=== PATIENT | female | born 1975 | race Two or more races ===

== ENCOUNTER 2020-12-10 11:04 | Outpatient (REF) | payer OTHER, SELFPAY ==
--- NOTE | ~2020-12-10 | XR_ITS ---
EXAMINATION: XR CHEST CLINICAL INFORMATION: Exposure to Covid 19. COMPARISON: None TECHNIQUE: 2 views of the chest were obtained. FINDINGS: The lungs are clear. The cardiomediastinal silhouette is normal in size. There is no pleural effusion or pneumothorax. No acute osseous abnormality. XR/XR chest 2V IMPRESSION: No acute cardiopulmonary findings.
[2020-12-10 13:56] LABS: MANUAL DIFF FLAG NO
[2020-12-10 14:04] LABS: Basophils Percent Auto 0.2 % (0-2); Eosinophils Absolute Auto 0.1 X10*3/uL (0.0-0.4); Eosinophils Percent Auto 1.5 % (0-4); Hematocrit 40.9 % (37-47); Hemoglobin 14.1 g/dl (12.0-16.0); Imm Gran Abs Auto 0.02 X10*3/uL (0.00-0.03); Imm Gran Pct Auto 0.3 % (0.0-0.4); Lymphocytes Absolute Auto 1.3 X10*3/uL (1.2-4.9); Lymphocytes Percent Auto 21.7 % (20-40); Mean Corpuscular HGB Conc 34.5 g/dl (31.0-35.0); Mean Corpuscular Hemoglobin 29.7 pg (27.0-33.0); Mean Corpuscular Volume 86.3 fL (80-98); Mean Platelet Volume 10.3 fL (9.4-12.3); Monocytes Absolute Auto 0.5 X10*3/uL (0.1-1.2); Neutrophils Percent Auto 68.3 % (45-73); Platelet Count 224 X10*3/uL (160-400); Red Blood Count 4.74 X10*6/uL (4.20-5.50); Red Cell Distribution Width 13.2 % (11.0-16.0); White Blood Count 5.9 X10*3/uL (4.8-10.8)
[2020-12-10 14:16] LABS: Glucose Urine UA NEG (NEG); Leukocyte Esterase Urine NEG (NEG); Nitrite Urine NEG (NEG); Prothrombin Time 10.9 SEC (9.9-13.0); Specific Gravity - Urine 1.025 (1.005-1.025); Urine Blood NEG (NEG); Urine Ketones NEG (NEG); Urine Protein NEG (NEG-TRACE)
[2020-12-10 14:19] LABS: Appearance Urine CLEAR; Color Urine YELLOW; Partial Thromboplastin Time 35.4 SEC (24.1-38.0)
[2020-12-10 14:34] LABS: Alanine Aminotransferase 26 U/L (0-31); Albumin Level 4.4 g/dL (3.5-5.0); Alkaline Phosphatase 78 U/L (39-117); Anion Gap 13 (12-20); Aspartate Amino Transferase 19 U/L (5-31); Bilirubin Total 0.6 mg/dL (0.0-1.0); Blood Urea Nitrogen 10 mg/dL (9-16); Calcium 9.2 mg/dL (8.4-10.2); Carbon Dioxide 24 mmol/L (22-29); Chloride 106 mmol/L (96-108); Cholesterol 178 mg/dL; Estimated Glomerular Filt Rate > 60; Glucose Fasting 90 mg/dL (60-99); HDL Cholesterol 44 mg/dL; LDL Cholesterol Calculated 108 mg/dl; Potassium 4.4 mmol/L (3.3-5.1); Sodium 139 mmol/L (135-145); Total Protein 6.7 g/dL (6.5-8.0); Triglycerides 132 mg/dL
[2020-12-10 14:54] LABS: HCG Quantitative < 2 mIU/mL; TSH reflex Free T4 0.65 uIU/mL (0.32-4.0)
[2020-12-12 08:02] LABS: HIV AB/AG Nonreactive (Nonreactive); HIV Num 1 0.07 S/CO (0.00-0.99)
== END 2020-12-10 11:05 | disposition home or self-care (01) ==
LOC: HO.HMGCX 11:04
PROVIDERS: PCP Nurse Practitioner Family; Visit Provider Nurse Practitioner Family
DX: Z01.818 Encounter for other preprocedural examination (principal); Z11.4 Encounter for screening for human immunodeficiency virus [HIV]; N92.6 Irregular menstruation, unspecified; Z20.822 Contact with and (suspected) exposure to COVID-19
CPT/HCPCS: 71046; 80053; 80061; 81003; 84443; 84702; 85025; 85610; 85730; 87389; U0003; U0005

== ENCOUNTER 2021-01-17 10:12 | Outpatient (REF) | payer OTHER, SELFPAY ==
--- NOTE | ~2021-01-17 | MM_ITS ---
EXAMINATION: MM SCREENING DIGITAL BREAST TOMOSYNTHESIS, BILATERAL CLINICAL INFORMATION: Screening. Asymptomatic. Family history breast cancer, paternal aunt. The lifetime risk of breast cancer based on the Tyrer-Cuzick Model is 14%. Personal history recent bilateral axillary liposuction procedures approximately one month ago. COMPARISON: Outside bilateral mammography and bilateral breast ultrasound 06/04/2010 ([facility] [place], [place], [place]). TECHNIQUE: Digital breast tomosynthesis is performed in both the craniocaudal and mediolateral oblique views along with computer-aided detection (CAD). Synthesized 2D images are generated from the tomosynthesis. FINDINGS: The breasts are heterogeneously dense, which may obscure small masses (ACR BI-RADS breast composition Category c). The breast parenchymal pattern is similar to prior outside exam. There is no significant mass or architectural abnormality. There are no abnormal calcifications. The skin contours are smooth. The MLO view show some increased attenuation overlying both upper axillary regions consistent with the clinical history recent bilateral axillary liposuction. No skin thickening. MM/MM tomosynthesis screening BI IMPRESSION: 1. No mammographic evidence of malignancy. 2. Mild bilateral upper axillary post operative changes. ASSESSMENT: BI-RADS 2: Benign RECOMMENDATION: Routine annual mammography screening. This patient's information was entered into a reminder system with a target due date for their next mammogram.
[2021-01-17 12:53] LABS: Influenza A PCR NEGATIVE (Negative); Influenza B PCR NEGATIVE (Negative); Resp Syncy Virus RNA Qual PCR POSITIVE (Negative); SARS COV2 PCR INHOUSE NEGATIVE (Negative)
== END 2021-01-17 10:13 | disposition home or self-care (01) ==
LOC: HO.MAMMO 10:12
PROVIDERS: Physician Assistant Medical; Visit Provider Nurse Practitioner Family
DX: Z12.31 Encounter for screening mammogram for malignant neoplasm of breast (principal); Z20.822 Contact with and (suspected) exposure to COVID-19; J02.9 Acute pharyngitis, unspecified
CPT/HCPCS: 0241U; 36415; 77063; 77067; 87071

== ENCOUNTER 2021-10-24 09:35 | Outpatient (REF) | payer OTHER, SELFPAY ==
[2021-10-24 15:06] LABS: CT PCR NOT DETECTED (Not Detect.); NG PCR NOT DETECTED (Not Detect.)
[2021-10-25 13:36] LABS: BV Int Neg Control Negative (Negative); BV Int Pos Control Positive (Positive)
[2021-10-30 19:06] LABS: HPV mRNA E6/E7 rflx Not Detected (Not Detected)
== END 2021-10-24 09:36 | disposition home or self-care (01) ==
LOC: HO.LAB 09:35
PROVIDERS: Visit Provider Advanced Practice Midwife
DX: Z01.419 Encounter for gynecological examination (general) (routine) without abnormal findings (principal); Z11.51 Encounter for screening for human papillomavirus (HPV); Z20.2 Contact with and (suspected) exposure to infections with a predominantly sexual mode of transmission; R10.2 Pelvic and perineal pain
CPT/HCPCS: 87480; 87491; 87510; 87591; 87624; 87660; 88142

== ENCOUNTER 2021-12-04 09:47 | Outpatient (REF) | payer OTHER, SELFPAY ==
--- NOTE | ~2021-12-04 | US_ITS ---
EXAMINATION: US PELVIS CLINICAL INFORMATION: Pelvic pain COMPARISON: None TECHNIQUE: Ultrasound of the pelvis is performed using both transabdominal and transvaginal transducers along Doppler. Transvaginal imaging is performed due to inadequate visualization transabdominally. FINDINGS: Uterus: The uterus is anteverted and measures 10.2 x 5.2 x 6.2 cm. Nabothian cysts in the cervix. The endometrium was obscured by myomas. Multiple uterine myomas are seen: * A 1.6 x 1.3 x 1.3 cm left intramural myoma. * A 2.0 x 1.4 x 1.8 cm left submucosal myoma with a 50% submucosal component. * A 2.4 x 1.9 x 2.7 cm subserosal myoma in the right body. * A 1.6 x 1.3 x 1.5 cm subserosal myoma in the fundus. Adnexa: Both ovaries are visualized. There is normal color flow to the adnexa. There is no ovarian torsion. There is no pelvic ascites or fluid collection. Right ovary measures 3.8 x 1.6 x 2.0 cm. Unremarkable appearance of the right ovary. Left ovary measures 2.7 x 1.8 x 1.7 cm. Unremarkable appearance of the left ovary. US/US pelvic and transvaginal IMPRESSION: Multiple uterine myomas, the largest is a a 2.7 cm subserosal myoma in the right body of the uterus. One myoma is submucosal measuring 2.0 cm with a 50% submucosal component. Unremarkable sonographic appearance of the ovaries.
== END 2021-12-04 09:48 | disposition home or self-care (01) ==
LOC: HO.HMGCX 09:47
PROVIDERS: Visit Provider Advanced Practice Midwife
DX: R10.2 Pelvic and perineal pain (principal)
CPT/HCPCS: 76830; 76856

== ENCOUNTER 2022-12-02 10:13 | Outpatient (REF) | payer OTHER, SELFPAY ==
[2022-12-02 17:38] LABS: CT PCR NOT DETECTED (Not Detect.); NG PCR NOT DETECTED (Not Detect.)
[2022-12-03 04:01] LABS: Syphilis Screen Nonreactive (Nonreactive)
[2022-12-03 04:36] LABS: HBc Num1 0.07 S/CO (0.00-0.79); HIV AB/AG Nonreactive (Nonreactive); HIV Num 1 0.06 S/CO (0.00-0.99); Hepatitis B Core Antibody Nonreactive (Nonreactive); ~HepC Num1 0.08 S/CO (0.00-0.79); ~Hepatitis C Antibody Nonreactive (Nonreactive)
[2022-12-03 12:49] LABS: BV Int Neg Control Negative (Negative); BV Int Pos Control Positive (Positive)
== END 2022-12-02 10:14 | disposition home or self-care (01) ==
LOC: HO.LAB 10:13
PROVIDERS: Visit Provider Advanced Practice Midwife
DX: Z01.419 Encounter for gynecological examination (general) (routine) without abnormal findings (principal); N89.8 Other specified noninflammatory disorders of vagina; R35.0 Frequency of micturition; Z20.2 Contact with and (suspected) exposure to infections with a predominantly sexual mode of transmission
CPT/HCPCS: 0353U; 81003; 86704; 86780; 86803; 87389; 87480; 87510; 87660

== ENCOUNTER 2022-12-02 10:13 | Outpatient (AMB) | payer OTHER, SELFPAY ==
--- NOTE | 2022-12-02 10:15 | MHC.OFFVIS ---
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 Scribed for TIN Craig by Trang Rosado medical insurance coding specialist, on 12/02/2022 at 10:40 am EST. Hose Tubing Backer Required: No Information Interpreted: non-clinical & clinical Boxing Instructor: Boxing Instructor Present (Sharyn) Allergies sulfamethoxazole [From Bactrim] Allergy (Intermediate, Verified 12/02/22 10:21) Hives trimethoprim [From Bactrim] Allergy (Intermediate, Verified 12/02/22 10:21) Hives Is last menstrual period known: No Post menopausal: No Patient : No HPI HPI Comments History of Present Illness Details She is a postmenopausal woman presenting for annual exam. Complaints of frequency of urination and vaginal odor. She is taking OTC AZO and Vagisil for vaginal odor. Patient admits she tries to eat a healthy diet including Calcium and Vitamin D. She stays active with exercise. Reports light monthly menses due to ablation. Currently sexually active. STD screening and blood work offered; she accepts. Denies family hx of breast and ovarian cancer. Last pap smear 10/24/21. Last mammogram 01/17/21, plans next mammogram in [place]-already booked. 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 Colonoscopy not scheduled looking for a new primary care in [place]. [facility] Medical History Acid reflux HTN (hypertension) Migraine Surgical History H/O abdominoplasty H/O cosmetic surgery History of endometrial ablation Hx of tubal ligation Family History Paternal Aunt History of breast cancer Paternal Grandmother Colon cancer Stomach cancer Social History Housing: House Alcohol intake: current Alcohol intake frequency: a few times a month Patient Tobacco Use Status: Never used Tobacco Second Hand Smoke Exposure: No Current occupational status: employed Current occupation: [employer] in [place] Current occupational exposures/hazards: Yes Sexual orientation: Straight/Heterosexual Gender identity: Female Female Reproductive History Menstrual control method: permanent sterilization Permanent Sterilization: BTL Total pregnancies: 4 Full term: 3 Number of Living Children: 3 Ab induced: 1 Date of last pap smear: 10/24/21 (negative) History of abnormal pap smear: No Date of Mammogram: 01/17/21 History of abnormal mammogram: No Physical Exam Vital Signs: Last Vital Signs BP 132/80 12/02/22 10:19 BMI result Body Mass Index 31.8 Const General: cooperative, healthy appearing, no acute distress, well developed and alert Orientation/consciousness: patient oriented x3 HEENT Head: Yes normal to inspection Eyes General: appearance normal, both eyes and all related structures Neck Neck: Yes normal visual inspection Thyroid: Thyroid normal Chest Chest palpation & inspection: normal inspection of the chest Breast/axilla inspection: normal inspection of the breasts (no puckering, dimpling, peau de orange, retraction, discharge, masses) Breast/axilla palpation: normal palpation of the breasts Resp Effort & Inspection: normal respiratory effort GI Other: abdominoplasty low transverse scar Inspection: Yes normal to inspection Palpation (GI): Soft to palpation (to palpation) Rectal Exam - Female: deferred Other: skin tag of vulvar on right labia, small 2 mm, rounded, smooth edges General: Yes bladder normal to inspection External Female Exam: normal external appearance and normal appearance of the urethra Speculum Exam - Vagina: normal appearance of the vagina, normal palpation and abnormal vaginal discharge white (small amount) Speculum Exam - Cervix: normal appearance of the cervix, normal palpation and Other cervical findings present (bled slightly with pap) Bimanual exam- vagina & uterus: normal palpation and normal palpation Bimanual Exam- Adnexa, other: normal adnexae and no masses Skin General skin exam: no rashes or lesions noted Neuro General: patient oriented x3 Cognition (Neuro): normal cognition Extrem General: Yes normal to inspection Psych Attitude: cooperative Thought process: Normal thought process present Results AMB Urinalysis, Automated UA Leukoctes 0 Jonathan/uL Last Edit by MYLES Baker on 12/02/22 10:44 UA Nitrite Negative Last Edit by MYLES Baker on 12/02/22 10:44 UA Urobilinogen 0 mg/dL Last Edit by Felicita Antonio Johnnie, A on 12/02/22 10:44 UA Protein 0 mg/dL Last Edit by Felicita Marisela Blair, A on 12/02/22 10:44 UA pH 6.0 Last Edit by Felicita Pinzonhonorio, A on 12/02/22 10:44 UA Blood 0 Denis/uL Last Edit by Felicita Marisela Blair, A on 12/02/22 10:44 UA Specific [place] 1.025 Last Edit by Felicita Pinzonhonorio, A on 12/02/22 10:44 UA Ketone Negative Last Edit by Felicita Antonio Manuelrogerhonorio, A on 12/02/22 10:44 UA Bilirubin 0 mg/dL Last Edit by Felicita Pinzonhonorio, A on 12/02/22 10:44 UA Glucose 0 mg/dL Last Edit by Felicita Jacksonrudi, A on 12/02/22 10:44 Results Reviewed Results Reviewed: Laboratory Last Values Urine pH (Auto) 6.0 12/02/22 10:43 Specific [place] (Auto) 1.025 12/02/22 10:43 Urine Protein (Auto) 0 mg/dL 12/02/22 10:43 Glucose (UA)(Auto) 0 mg/dL 12/02/22 10:43 Urine Ketones (Auto) Negative 12/02/22 10:43 Urine Blood (Auto) 0 Denis/uL 12/02/22 10:43 Urine Nitrite (Auto) Negative 12/02/22 10:43 Urine Bilirubin (Auto) 0 mg/dL 12/02/22 10:43 Urine Urobilinogen (Auto) 0 mg/dL 12/02/22 10:43 Leukocyte Esterase (Auto) 0 Jonathan/uL 12/02/22 10:43 Assessment & Plan Assessment & Plan (1) Encounter for well woman exam: Code(s): Z01.419 - Encounter for gynecological examination (general) (routine) without abnormal findings Plan: Discussed: Current recommendations for pap smears per ASCCP guidelines Breast awareness and periodic self breast exams. Maintaining a healthy lifestyle including a well balanced diet and routine exercise. Release of records of last mammogram records. Encouraged to scheduled colonoscopy when PCP is established. All of her questions and concerns were addressed to the best of my ability. RTO in one year for AG. (2) Vaginal odor: Code(s): N89.8 - Other specified noninflammatory disorders of vagina Plan: BV testing, STD blood work and GC/CT panel done today. Await results and treat accordingly. (3) Frequency of urination: Code(s): R35.0 - Frequency of micturition Orders: Orders Hepatitis B Core Antibody Today Z20.2 - Contact with and (suspected) exposure to infections with a predominantly sexual mode of transmission Hepatitis C Antibody Today Z20.2 - Contact with and (suspected) exposure to infections with a predominantly sexual mode of transmission HIV Ab/Ag Today Z20.2 - Contact with and (suspected) exposure to infections with a predominantly sexual mode of transmission Syphilis Screen Today Z20.2 - Contact with and (suspected) exposure to infections with a predominantly sexual mode of transmission Bacterial Vaginosis Panel Today N89.8 - Other specified noninflammatory disorders of vagina CT NG by PCR Today N89.8 - Other specified noninflammatory disorders of vagina AMB Urinalysis Automated Today R35.0 - Frequency of micturition Coding Level of Care Code Est Pt Prev Care 40-64y(31681) Diagnoses Encounter for well woman exam Z01.419 Vaginal odor N89.8 Frequency of urination R35.0
[2022-12-02 10:19] VITALS: BP 132/80; BMI 31.8
== END 2022-12-02 11:01 | disposition home or self-care (01) ==
LOC: HO.HWS 10:13
PROVIDERS: Visit Provider Advanced Practice Midwife
DX: Z01.419 Encounter for gynecological examination (general) (routine) without abnormal findings (principal); N89.8 Other specified noninflammatory disorders of vagina; R35.0 Frequency of micturition
CPT/HCPCS: 99396

== ENCOUNTER 2022-12-02 10:51 | Outpatient (REF) | payer OTHER, SELFPAY | END 2022-12-02 10:52 | disposition home or self-care (01) | LOC: HO.LNP 10:51 | PROVIDERS: Visit Provider Advanced Practice Midwife | DX: Z13.89 Encounter for screening for other disorder (principal) ==